=== PATIENT | male | born 1960 | race African-American/Black ===

== ENCOUNTER 2020-12-17 11:39 | Inpatient (IN) | payer BC ==
[2020-12-17] VITALS (8 sets, daily range): BP systolic 115–218; BP diastolic 53–111
[~2020-12-17] VITALS: Ht 185.4 cm; Wt 95.3 kg
[2020-12-17 12:13] LABS: ABSOLUTE NEUTROPHILS 8.5 thou/uL (1.4-8.2); BASOPHILS 0.4 % (0.0-2.0); EOSINOPHILS 0.2 % (0.0-3.0); HEMATOCRIT 41.5 % (42.0-52.0); HEMOGLOBIN 13.7 gm/dL (14.0-18.0); LYMPHOCYTES 7.4 % (24.0-44.0); MCH 28.2 pg (26.0-34.0); MCHC 33.1 g/dL (28.0-37.0); MCV 85.1 fL (80.0-100.0); MONOCYTES 6.5 % (1.0-8.0); PLATELET COUNT 294 thou/uL (150-400); POLYS 85.5 % (36.0-66.0); RBC 4.88 mil/uL (4.50-6.00); RDW 13.4 % (10.5-14.5)
[2020-12-17 12:24] LABS: CALCIUM 9.3 mg/dL (8.5-10.1); CREATININE 1.1 mg/dL (0.7-1.3); POTASSIUM 3.1 mmol/L (3.5-5.1)
[2020-12-17 12:32] LABS: TROPONIN-I 0.08 ng/mL (<0.06)
--- NOTE | 2020-12-17 15:38 | EKG ---
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: arvin : 1960 Requested By: Timur Krause Order Number: [id number] MD: Raffi Mckeon Measurements Intervals [place] Rate: 134 P: 70 CT: 126 QRS: -73 QRSD: 142 T: 26 QT: 310 QTc: 463 Interpretive Statements Sinus tachycardia Probable left atrial enlargement RBBB and LAFB No previous ECG available for comparison Electronically Signed On 12-17-2020 15:38:22 CDT by Raffi Mckeon [email or web address] <ELECTRONICALLY SIGNED> By: Raffi Mckeon MD, [facility] 12/17/20 1538 1155 1155 Raffi Mckeon MD, FACC /EPI
--- NOTE | 2020-12-17 19:13 | NUR ---
PT CARE ASSUMED AT 1600. ASSESSMENTS CHARTED. MEDICATIONS CHARTED. RAC IV. SINUS TACHYCARDIA. ACHS. DR LONGO WANTS AN OVERNIGHT OXIMETRY. UP AD PORTIA.
[2020-12-18 01:45] VITALS: BP 143/77
[2020-12-18 04:21] VITALS: BP 121/79
[2020-12-18 04:45] VITALS: BP 121/79
[2020-12-18 05:58] LABS: HEMATOCRIT 37.4 % (42.0-52.0); HEMOGLOBIN 12.2 gm/dL (14.0-18.0); MCH 27.8 pg (26.0-34.0); MCHC 32.7 g/dL (28.0-37.0); MCV 85.1 fL (80.0-100.0); RBC 4.4 mil/uL (4.50-6.00); RDW 13.4 % (10.5-14.5)
[2020-12-18 06:07] LABS: CHOLESTEROL 169 mg/dL (<200); HDL CHOLESTEROL 42 mg/dL (>40); LDL CHOLESTEROL 109 mg/dL (<100); TRIGLYCERIDE 94 mg/dL (<150); VLDL 19 mg/dL (<40)
[2020-12-18 06:33] LABS: SERUM ASSESSMENT Clear
[2020-12-18 06:44] LABS: CALCIUM 8.8 mg/dL (8.5-10.1); POTASSIUM 3.1 mmol/L (3.5-5.1); TROPONIN-I 0.09 ng/mL (<0.06)
--- NOTE | 2020-12-18 07:06 | EKG ---
[address] [place] [address] ELECTROCARDIOGRAM REPORT Name: JACKSON RUBIO Room #: 209-P ADM IN M.R.#: [id number] Admission: 12/17/20 Attend Phys: Amador Yañez MD Discharge: Date of : 58 Report #: [id number] [facility] ED Test Date: 2020-12-17 Test Time: 12:58:38 Pat Name: JACKSON RUBIO Department: Room: 209 Gender: M Group Cio: ANNE : 1960 Requested By: Timur Krause Order Number: [id number] MD: Raffi Mckeon Measurements Intervals [place] Rate: 106 P: 63 [place]: 173 QRS: -59 QRSD: 145 T: 13 QT: 371 QTc: 493 Interpretive Statements Sinus tachycardia Left atrial enlargement RBBB and LAFB Baseline wander in lead(s) I,II,aVR Compared to ECG 12/17/2020 11:55:21 No significant changes Electronically Signed On 12-18-2020 7:05:47 CDT by Raffi Mckeon [email or web address] <ELECTRONICALLY SIGNED> By: Raffi Mckeon MD, [facility] 12/18/20 0705 [id number] [id number] Raffi Mckeon MD, FAC /EPI
[2020-12-18 07:18] VITALS: BP 131/81
--- NOTE | 2020-12-18 09:02 | 2DMMODE ---
[facility] [address] [place] [address] 2 D/M-MODE ECHOCARDIOGRAM Name: JACKSON RUBIO Room #: 209-P ADM IN M.R.#: [id number] Admission: 12/17/20 Attend Phys: Amador Yañez MD Discharge: Date of : 58 Report #: [id number] THIS REPORT FOR: cc: Celina Acevedo MD, Karla L. MD Lammoglia, Francisco J. MD ~ APPROVED REPORT Study performed: 12/18/2020 07:55:14 EXAM: Comprehensive 2D, Doppler, and color-flow Echocardiogram Patient Location: Bedside Room #: 209 Status: routine BSA: 2.18 HR: 96 bpm BP: 131/81 mmHg Rhythm: NSR Other Information Study Quality: Good Indications Elevated troponin, HTN urgency. 2D Dimensions RVDd: 37.74 mm IVSd: 10.40 (7-11mm) LVOT Diam: 22.00 (18-24mm) LVDd: 53.21 mm PWd: 9.87 (7-11mm) Ascending Ao: 38.40 (22-36mm) LVDs: 29.96 (25-40mm) Left Atrium: 38.12 (27-40mm) Aortic Root: 32.81 mm Volumes Left Atrial Volume (Systole) Single Plane 4CH: 55.02 mL Single Plane 2CH: 76.60 mL LA ESV Index: 32.00 mL/m2 Aortic Valve AoV Peak Beau.: 2.60 m/s AO Peak Gr.: 27.02 mmHg LVOT Max P.07 mmHg AO Mean Gr.: 13.78 mmHg AO V2 Mean: 1.75 m/s LVOT Max V: 1.59 m/s [facility] [address] [place] [address] 2 D/M-MODE ECHOCARDIOGRAM Name: JACKSON RUBIO Room #: [address] [place] [address] [place] [facility].#: [id number] Admission: 12/17/20 Attend Phys: Amador Yañez MD Discharge: Date of : 58 Report #: [id number] AO V2 VTI: 49.74 cm RACHEL Vmax: 2.32 cm2 Mitral Valve E/A Ratio: 1.2 MV Decel. Time: 159.76 ms MV E Max Beau.: 1.11 m/s MV A Beau.: 0.91 m/s MV PHT: 46.33 ms IVRT: 53.06 ms Pulmonary Valve PV Peak Beau.: 1.94 m/s PV Peak Gr.: 16.29 mmHg Pulmonary Vein P Vein S: 0.73 m/s P Vein A: 0.38 m/s P Vein D: 0.85 m/s P Vein A Dur.: 124.6 msec P Vein S/D Ratio: 0.86 Tricuspid Valve TR Peak Beau.: 2.60 m/s RAP Estimate: 5.00 mmHg TR Peak Gr.: 27.00 mmHg PA Pressure: 32.00 mmHg Left Ventricle The left ventricle is normal size. There is normal LV segmental wall motion. There is normal left ventricular wall thickness. Left ventricular systolic function is hyperdynamic. LVEF is 65-70%. Moderate diastolic dysfunction is present (pseudonormal filling). Right Ventricle The right ventricle is normal size. The right ventricular systolic function is normal. Atria The left atrium size is normal. The right atrium size is normal. Aortic Valve The aortic valve is normal in structure; mildly calcified. Mild aortic regurgitation. There is no aortic valvular stenosis. Mitral Valve The mitral valve is normal in structure. Trace mitral regurgitation. No evidence of mitral valve stenosis. [address] [address] 2 D/M-MODE ECHOCARDIOGRAM Name: JACKSON RUBIO Room #: 209-P [facility] IN M.R.#: [id number] Admission: 12/17/20 Attend Phys: Amador Yañez MD Discharge: Date of : 58 Report #: [id number] Tricuspid Valve The tricuspid valve is normal in structure. Trace tricuspid regurgitation. Estimated PAP is 30-35mmHg. Pulmonic Valve The pulmonary valve is normal in structure. Trace pulmonic regurgitation. Great Vessels The aortic root is normal in size. The ascending aorta is borderline dilated. IVC is normal in size and collapses >50% with inspiration. Pericardium There is no pericardial effusion. <Conclusion> The left ventricle is normal size. LVEF is 65-70%. The aortic valve is normal in structure; mildly calcified. Mild aortic regurgitation. The mitral valve is normal in structure. Trace mitral regurgitation. The tricuspid valve is normal in structure. Trace tricuspid regurgitation. Estimated PAP is 30-35mmHg. The pulmonary valve is normal in structure. The aortic root is normal in size. The ascending aorta is borderline dilated. There is no pericardial effusion. <ELECTRONICALLY SIGNED> By: Bartolo Mcfadden MD 12/18/20901 1 1 Bartolo Mcfadden MD /INF
[2020-12-18] MEDS ORDERED: LISINOPRIL10 MG PO (09:40)
[2020-12-18] MEDS ORDERED: NIFEDIPINE ER30 M1 PO (09:40)
[2020-12-18 11:05] VITALS: BP 145/79
[2020-12-18] MEDS ORDERED: ACETAMINOPHEN325 M1 PO (11:37)
--- NOTE | 2020-12-18 13:27 | NUR ---
RECEIVED PT'S CARE AROUND 0735; PT. ON BED; ALERT; SBP ON THE 130s; DURING AM ASSESSMENT PT. AOX4; NO C/O PAIN; AM MEDICATIONS GIVEN; EDUCATED ABOUT NEW MEDICATIONS; [facility]STANDING; SR ON THE MONITOR; D/C ORDERS ON PLACED; EDUCATED ABOUT D/C PROCESS; [facility]; REQUESTED TO FORM TO BE SIGNED; PHYSICIAN NOTIFIED; ORDERS RECEIVED; WILL PROVIDED RX OK TO HOME; ASSESSMENT CHARGED; FOLLOWING POC; WILL WORK ON D/C ORDERS;
[2020-12-18 13:41] VITALS: BP 145/79
== END 2020-12-18 14:32 | disposition home or self-care (01) | DRG 305 ==
LOC: ER 11:39 → EROBS 15:02 → 2N 15:02
PROVIDERS: Nurse Practitioner; ADMIT Internal Medicine; ATTEND Internal Medicine
DX: I16.0 Hypertensive urgency (principal); E87.1 Hypo-osmolality and hyponatremia; R77.8 Other specified abnormalities of plasma proteins; E87.6 Hypokalemia; E21.3 Hyperparathyroidism, unspecified; R73.9 Hyperglycemia, unspecified; E05.90 Thyrotoxicosis, unspecified without thyrotoxic crisis or storm; Z91.14 Patient's other noncompliance with medication regimen
CPT/HCPCS: 10081

== ENCOUNTER → 2021-01-10 | Outpatient (CLI) | payer BC ==
[~2021-01-10] MED LIST: ACETAMINOPHEN325 M1 PO; LISINOPRIL10 MG PO; NIFEDIPINE ER30 M1 PO
== END ==
LOC: SJCVCIMAG 07:30
PROVIDERS: ATTEND Internal Medicine
DX: I45.2 Bifascicular block (principal); R00.0 Tachycardia, unspecified; I16.9 Hypertensive crisis, unspecified; I10 Essential (primary) hypertension; E78.5 Hyperlipidemia, unspecified; Z87.891 Personal history of nicotine dependence; Z79.899 Other long term (current) drug therapy; R73.9 Hyperglycemia, unspecified